=== PATIENT | female | born 2000 | race Caucasian/White ===

== ENCOUNTER 2022-12-24 15:11 | Emergency (ER) | payer OTHER ==
[~2022-12-24] VITALS: Ht 160 cm; Wt 50.0 kg
[2022-12-24] MEDS ORDERED: ZOFRAN ODT4 MG PO (16:59)
[2022-12-24 17:17] VITALS: BP 97/56; PULSE 67; TEMP 98.1
== END 2022-12-24 17:12 | disposition home or self-care (01) ==
LOC: COL.ER 15:11
DX: R11.2 Nausea with vomiting, unspecified (principal); J32.9 Chronic sinusitis, unspecified
CPT/HCPCS: J2405; J7030